=== PATIENT | male | born 1980 | race Caucasian/White ===

== ENCOUNTER 2022-06-21 15:18 | Emergency (ER) | payer OTHER ==
[~2022-06-21] VITALS: Ht 180.3 cm; Wt 68.1 kg
[2022-06-21 16:03] VITALS: BP 98/39
[2022-06-21 16:12] LABS: HEMATOCRIT 39.9 % (39.0-50.0); HEMOGLOBIN 13.3 g/dl (14.0-18.0); IMMATURE GRANULOCYTES 0.3 % (0.0-5.0); MEAN CELL VOLUME 96.8 fL CALC (80.0-100.0); MEAN CORPUSCULAR HGB 32.3 pG CALC (26.0-32.0); MEAN CORPUSCULAR HGB CONC 33.3 g/dL CAL (32.0-36.0); NEUT# 3.16 thou/uL (1.82-7.42); RED BLOOD COUNT 4.12 mill/uL (4.70-6.10); RED CELL DISTRI WIDTH 13.9 % (11.5-15.5)
[2022-06-21 16:16] VITALS: BP 122/57
[2022-06-21 16:26] LABS: ALBUMIN 3.8 g/dL (3.2-5.0); ALKALINE PHOSPHATASE 101 u/l (38-126); ANION GAP 12 (6-22 (CALC)); BILIRUBIN, TOTAL 0.4 mg/dL (0.0-1.4); BUN 15 mg/dL (9-20); BUN/CREATININE RATIO 25 (12-20 (CALC)); CARBON DIOXIDE 26 mmol/l (22-30); CHLORIDE 106 mmol/l (95-108); CREATININE 0.6 mg/dL (0.7-1.3); GFR FOR AFR.AMER. > 60 ML/MIN (>=60 (CALC)); GFR OTHER RACES > 60 ML/MIN (>=60 (CALC)); POTASSIUM 4.2 mmol/l (3.5-5.1); SGOT/AST 59 u/l (17-59); SODIUM 140 mmol/l (137-146); TOTAL PROTEIN 6.6 g/dL (6.3-8.2)
[2022-06-21] MEDS ORDERED: CEPHALEXIN500 M1 PO (17:02)
[2022-06-21 17:15] VITALS: BP 107/70
[2022-06-21 17:27] VITALS: BP 122/57
== END 2022-06-21 17:28 | disposition home or self-care (01) ==
LOC: ED 15:18
PROVIDERS: Family Medicine
DX: K92.1 Melena (principal); L03.116 Cellulitis of left lower limb